=== PATIENT | male | born 1955 | race Caucasian/White ===

== ENCOUNTER 2016-03-03 08:08 | Inpatient (IN) | payer OTHER ==
[~2016-03-03] VITALS: Ht 172.7 cm; Wt 76.7 kg
[~2016-03-03 08:08] MED LIST: IRON325 M1 PO; LIPITOR40 MG PO; ZYLOPRIM100 MG PO
[2016-03-03 08:45] VITALS: BP 122/82
[2016-03-03 15:46] VITALS: BP 115/61; BP 115/73
[2016-03-03 19:33] VITALS: BP 109/69
[2016-03-03 23:33] VITALS: BP 109/60
[2016-03-04 04:00] VITALS: BP 96/53
[2016-03-04 05:35] LABS: HEMATOCRIT 36.6 % (38.0-50.0); MCV 86.1 FL (86-99)
[2016-03-04 08:00] VITALS: BP 111/65
[2016-03-04 12:00] VITALS: BP 109/55
[2016-03-04 15:53] VITALS: BP 122/73
[2016-03-04 20:02] VITALS: BP 120/70
[2016-03-04 23:04] VITALS: BP 123/66
[2016-03-05 03:56] VITALS: BP 126/60
[2016-03-05 05:36] LABS: HEMATOCRIT 35.5 % (38.0-50.0); MCV 85.3 FL (86-99)
[2016-03-05] MEDS ORDERED: ASPIRIN EC325 MG PO (07:54)
[2016-03-05] MEDS ORDERED: IRON325 M1 PO (07:54)
[2016-03-05] MEDS ORDERED: HYDROCODON-ACE1 EAC7 PO (07:55)
[2016-03-05] MEDS ORDERED: CELECOXIB200 MG PO (07:55)
[2016-03-05 08:00] VITALS: BP 122/70
[2016-03-05 12:00] VITALS: BP 133/66
[2016-03-05 13:59] VITALS: BP 133/68
== END 2016-03-05 14:06 | DRG 470 ==
LOC: 2SOUTH 08:08 → 3WEST 15:13 → SDC 16:13 → EDSTATUS 16:13 → 2SOUTH 16:16 → 3WEST 03-05 14:06
PROVIDERS: Orthopaedic Surgery
PROC: 0SRC0J9 Replacement of Right Knee Joint with Synthetic Substitute, Cemented, Open Approach (ICD-10-PCS; principal; 2016-03-03)
DX: M17.11 Unilateral primary osteoarthritis, right knee (principal); M10.9 Gout, unspecified; E78.00 Pure hypercholesterolemia, unspecified; Z87.442 Personal history of urinary calculi; I44.7 Left bundle-branch block, unspecified
CPT/HCPCS: 85014; 85018; 97530 GP; J0690; J1100; J1885; J2250; J2405; J3010; J3370; J7050; J7120; S0020

== ENCOUNTER 2016-03-31 08:39 | Inpatient (IN) | payer OTHER ==
[~2016-03-31] VITALS: Ht 172.7 cm; Wt 77.0 kg
[~2016-03-31 08:39] MED LIST changes: +ASPIRIN EC325 MG PO; +ASPIRIN325 MG PO; +CELECOXIB200 MG PO; +FERROUS SULFAT325 MG PO; +HYDROCODON-ACE1 EAC7 PO
[2016-03-31 09:14] VITALS: BP 139/75
[2016-03-31 15:40] VITALS: BP 120/65
[2016-03-31 20:06] VITALS: BP 123/65
[2016-04-01] VITALS (7 sets, daily range): BP systolic 104–115; BP diastolic 58–67
[2016-04-01 05:33] LABS: HEMATOCRIT 34.2 % (38.0-50.0); MCV 86.4 FL (86-99)
[2016-04-02 04:02] VITALS: BP 122/65
[2016-04-02 05:30] LABS: HEMATOCRIT 32.4 % (38.0-50.0); MCV 86.2 FL (86-99)
[2016-04-02] MEDS ORDERED: SENNA PLUS TAB1 EACH PO (08:52)
[2016-04-02] MEDS ORDERED: CELECOXIB200 MG PO (08:53)
[2016-04-02] MEDS ORDERED: ENDOCET 5-3251 EACH PO (08:53)
[2016-04-02 12:07] VITALS: BP 102/57
[2016-04-02 14:26] VITALS: BP 136/58
== END 2016-04-02 14:40 | DRG 470 ==
LOC: 3WEST 08:39 → 2SOUTH 08:39 → 3WEST 14:11
PROVIDERS: Orthopaedic Surgery
PROC: 0SRD0J9 Replacement of Left Knee Joint with Synthetic Substitute, Cemented, Open Approach (ICD-10-PCS; principal; 2016-03-31)
DX: M17.12 Unilateral primary osteoarthritis, left knee (principal); E78.00 Pure hypercholesterolemia, unspecified; M10.9 Gout, unspecified; Z96.651 Presence of right artificial knee joint
CPT/HCPCS: 85014; 85018; J0131; J0690; J1100; J1170; J1885; J2250; J2405; J3010; J3370; J7050; J7120; S0020